=== PATIENT | female | born 1965 | race Caucasian/White ===

== ENCOUNTER 2022-12-31 13:01 | Outpatient (RCR) | payer MEDICARE, SELFPAY ==
--- NOTE | 2022-12-31 14:21 | PTOPEVAL1 ---
Assessment and note entered by Yariel Hall Evaluation Information Assessment Status Evaluation Diagnosis flank pain, right hip pain Onset 10/30/22 Subjective Information Pt. recalls worsening back and hip pain over the past couple months. She describes her pain in the area of the right buttock and back. She states that pain is most notable with getting out of a seated position and walking. She reports difficulty with laying flat. She denies any falls or abnormal weakness. She reports that she has difficulty with walking long distances. She report she gets relief of her pain with described bending forward. She reports that she has to go up and down steps to do her laundry and pain worsens with this activity. She states that her goal is to get rid of her back pain. Reported Pain Level Pain Score 6: Self Report Assessment PT Clinical Summary Pt. is a 57 year old female who enters the clinic with back and hip pain secondary to noted dextroscoliosis. she presents with impaired postural awareness, impaired gait, impaired trunk moblity, weakness and pain with ADL's on this date . Continued skilled PT is indicated in order to improve these areas to allow the pt. to be able to complete all IADL's with improved comfort. Plan of Care Interventions Electrical Stimulation,Hot Pack/Cold Pack,Manual Therapy,Neuro Re-education,Patient/Caregiver Educati,Therapeutic Activities,Therapeutic Exercise,Self-Care/Home Management PT Services Indicated Yes Treatment Frequency and 2x/week x 12 visits Duration These treatments will address the objective and functional deficits as defined above. The patient will be advanced safely and appropriately in order for the patient to progress towards his/her prior level of function. Additional exercises will be introduced and as well as a comprehensive home exercise program upon discharge, if needed, ?to ensure carryover of functional gains achieved in the clinic. This treatment plan has been reviewed and agreement upon by the patient.
== END 2023-01-14 15:17 | disposition home or self-care (01) ==
LOC: CHSPT 13:01
PROVIDERS: PCP Family Medicine; Visit Provider Family Medicine
DX: R10.9 Unspecified abdominal pain (principal); M41.80 Other forms of scoliosis, site unspecified
CPT/HCPCS: 97014; 97110; 97140; 97161; G0283

== ENCOUNTER 2023-11-25 14:21 | Emergency (ER) | payer MEDICARE, SELFPAY ==
[2023-11-25] VITALS (16 sets, daily range): BP systolic 106–139; BP diastolic 62–81; PULSE 64–84; RESP 12–25; TEMP 37.1; O2SAT 98–100
--- NOTE | 2023-11-25 14:31 | ECG_ITS ---
Measurements Intervals [place] Rate: 77 P: 67 MT: 157 QRS: 17 QRSD: 72 T: 53 QT: 381 QTc: 431 Interpretive Statements SINUS RHYTHM BASELINE WANDER- I, III, AVR, AVL, AVF NORMAL ECG NO PREVIOUS ECG AVAILABLE FOR COMPARISON Electronically Signed On 11-26-2023 7:23:52 MBA INTERN by Santiago Parker D.O.
[2023-11-25 15:26] LABS: Basophils Percent Auto 0.4 % (0.2-1.2); Eosinophils Absolute Auto 0.2 K/mm3 (0-0.3); Eosinophils Percent Auto 3.2 % (0-4.4); Hematocrit 29.6 % (37.0-47.0); Hemoglobin 9.5 g/dL (12.0-15.0); Immature Granulocyte Absolute 0.11 K/mm3 (0.00-0.031); Lymphocytes Absolute Auto 1.17 K/mm3 (0.9-3.2); Lymphocytes Percent Auto 21.1 % (18.3-44.2); Mean Corpuscular HGB Conc 32.1 g/dl (32-36); Mean Corpuscular Hemoglobin 29.7 pg (26-34); Mean Corpuscular Volume 92.5 fl (80-100); Mean Platelet Volume 9.4 fl (7.4-10.4); Monocytes Absolute Auto 0.4 K/mm3 (0.1-0.6); Monocytes Percent Auto 7.9 % (2.6-8.5); Neutrophils Absolute Auto 3.6 K/mm3 (1.3-6.7); Neutrophils Percent Auto 65.4 % (45.5-73.1); Platelet Count Result 456 k/mm3 (150-375); Red Cell Distribution Width 13.9 % (11.5-14.5); White Blood Count 5.5 K/mm3 (4.5-10.0)
[2023-11-25 15:27] LABS: Appearance Urine Clear (Clear); Bilirubin Urine Negative (Negative); Blood Urine Negative (Negative); Color Urine Yellow (Yellow); Glucose Urine UA Negative (Negative); Ketones Urine Negative (Negative); Leukocyte Esterase Ur Negative LEU/UL (Negative); Nitrate Urine Negative (Negative); Protein Urine Negative (Negative); Specific Grav Ur 1.006 (1.001-1.035); pH Urine 6.5 (5.0-9.0)
[2023-11-25 15:36] LABS: Add Urine Microscopic? NO
[2023-11-25 15:38] LABS: Alanine Aminotransferase 18 U/L (6-35); Albumin Level 3.1 g/dL (3.5-5.1); Alkaline Phosphatase 75 U/L (38-126); Anion Gap 6 mmol/L (8-16); Aspartate Amino Transferase 36 U/L (14-36); Bilirubin,Total 0.5 mg/dL (0.2-1.3); Blood Urea Nitrogen 11 mg/dL (7-17); Calcium 8.1 mg/dL (8.4-10.2); Carbon Dioxide 22 mmol/L (22-30); Chloride 102 mmol/L (98-107); Estimated CRCL calculation 62 ml/min; Estimated Glomerular Filt Rate > 60; Glucose 81 mg/dL (65-110); Potassium 3.3 mmol/L (3.4-5.0); Sodium 130 mmol/L (137-145)
--- NOTE | 2023-11-25 15:48 | ED.SEIZURE ---
HPI - Seizure General Chief Complaint: Seizure Stated Complaint: seizure Time Seen by Provider: 11/25/23 14:55 History of Present Illness HPI Narrative: Patient is a 58-year-old female with a history of seizure disorder presenting after a seizure. Patient is coming from a rehab facility. States that she had a seizure and everyone at the facility panicked and called 911. States that she has a history of seizures and is on numerous medications. She currently denies any complaints. She states that she feels well and she does not want to be here. Related Data Allergies Allergy/AdvReac Type Severity Reaction Status Date / Time NA Allergy Unknown Uncoded 03/09/09 12:07 Review of Systems Review of Systems: All systems reviewed & are unremarkable except as noted in HPI and below Exam Narrative: GENERAL: Well-appearing, in no acute distress, pleasant and cooperative HEAD: Normocephalic, atraumatic. EYES: PERRLA and EOMI. ENT: Grossly unremarkable NECK: Supple. CHEST: No respiratory distress. HEART: Regular rate and rhythm EXTREMITIES: Normal range of motion. SKIN: Warm, dry, no rash. NEURO: No focal deficits. Alert and oriented x3. PSYCH: Normal mood and affect. Course Vital Signs Vital signs: Vital Signs Temperature 98.7 F 11/25/23 14:19 Pulse Rate 84 11/25/23 14:19 Respiratory Rate 15 11/25/23 14:19 Blood Pressure 139/81 11/25/23 14:19 Pulse Oximetry 99 11/25/23 14:19 Oxygen Delivery Room Air 11/25/23 14:19 Temperature 98.7 F 11/25/23 14:19 Pulse Rate 74 11/25/23 17:19 Respiratory Rate 17 11/25/23 17:19 Blood Pressure 112/63 11/25/23 17:19 Pulse Oximetry 100 11/25/23 17:19 Oxygen Delivery Room Air 11/25/23 14:48 MDM - Seizure MDM Narrative Medical decision making narrative: 58-year-old female presenting after seizure. Vitals are stable. Exam is unremarkable. Neurologically intact. She denies any complaints right now. She is rather upset that she is here and that EMS was called. States that she takes multiple seizure medications and she is compliant. Blood work was obtained which shows mild hypokalemia and hyponatremia. No other significant abnormalities. Patient declined IV hydration but she was agreeable with an IV load of Keppra. She is asking to go which I think is reasonable. She states that she has an appointment with her neurologist coming up. Strict return precautions given. Discharged in stable condition. Differential Diagnosis Differential diagnosis: Likely focal seizure, generalized seizure and other ( Seizure disorder) Lab Data Attestation: I reviewed the patient's lab results. 11/25/23 15:19 11/25/23 15:19 Labs: Lab Results 11/25/23 11/25/23 Range/Units 15:19 15:20 WBC 5.5 (4.5-10.0) K/mm3 RBC 3.20 L (4.2-5.4) M/mm3 Hgb 9.5 L (12.0-15.0) g/dL Hct 29.6 L (37.0-47.0) % MCV 92.5 (80-100) fl MCH 29.7 (26-34) pg MCHC 32.1 (32-36) g/dl RDW 13.9 (11.5-14.5) % Plt Count 456 H (150-375) k/mm3 MPV 9.4 (7.4-10.4) fl Immature Gran % (Auto) 2.0 H (0-0.5) % Neut % (Auto) 65.4 (45.5-73.1) % Lymph % (Auto) 21.1 (18.3-44.2) % [place] % (Auto) 7.9 (2.6-8.5) % Eos % (Auto) 3.2 (0-4.4) % Baso % (Auto) 0.4 (0.2-1.2) % Lymph # (Auto) 1.17 (0.9-3.2) K/mm3 [place] # (Auto) 0.4 (0.1-0.6) K/mm3 Eos # (Auto) 0.2 (0-0.3) K/mm3 Baso # (Auto) 0.0 (0.0-0.1) K/mm3 Abs Immat Gran (auto) 0.11 H (0.00-0.031) K/mm3 Absolute Neuts (auto) 3.6 (1.3-6.7) K/mm3 Absolute Nucleated RBC 0.0 (0.0-0.012) K/mm3 Nucleated RBC % 0.0 (0.0-0.2) % Sodium 130 L (137-145) mmol/L Potassium 3.3 L (3.4-5.0) mmol/L Chloride 102 (98-107) mmol/L Carbon Dioxide 22 (22-30) mmol/L Anion Gap 6 L (8-16) mmol/L BUN 11 (7-17) mg/dL Creatinine 0.70 (0.7-1.0) mg/dL Estim Creat Clear Calc 62 ml/min Estimated GFR > 60 (59 - ) Gluco
--- NOTE | 2023-11-25 16:04 | PC.NURSE ---
pt requested no iv fluids. I educated pt of side effects, use, and how it could benefit them but they still would like to refuse. notified
[2023-11-25] MEDS: levETIRAcetam 1000MG/NACL100ML 1,000 MG/100 ML BAG 400 MG IVPB (16:13)
== END 2023-11-25 17:17 | disposition home or self-care (01) ==
PROVIDERS: Emergency Provider Emergency Medicine; PCP Family Medicine
DX: G40.909 Epilepsy, unspecified, not intractable, without status epilepticus (principal)
CPT/HCPCS: 36415; 80053; 81003; 85025; 93005; 96374; 99284; J1953

== ENCOUNTER 2023-12-03 19:44 | Emergency (ER) | payer MEDICARE, SELFPAY ==
[2023-12-03] VITALS (26 sets, daily range): BP systolic 81–113; BP diastolic 47–61; PULSE 70–92; RESP 11–22; TEMP 36.5–38.1; O2SAT 95–100
--- NOTE | ~2023-12-03 | CT_ITS ---
EXAMINATION: CT brain wo con DATE: 12/03/2023 20:43 INDICATION: weakness . TECHNIQUE: Computed tomography (CT) of the head was performed without intravenous contrast. The mA wa s adjusted according to patient size. Iterative reconstruction technique was employed. The dose-lengt h product was 605.33 mGy-cm. COMPARISON: None. FINDINGS: No acute intracranial hemorrhage or extra-axial fluid collection. No hydrocephalus, mass, or herniation. No acute ischemic infarct. Unremarkable dural venous sinus attenuation. No acute osseous abnormality. The aerated spaces are clear. Bilateral craniotomy defects. Left temporal encephalomalacia. Mild atrophy and chronic white matter c hange. Atherosclerotic intracranial calcification. Bilateral lens replacements. IMPRESSION: No acute intracranial process. Reviewed, dictated and finalized at location K. LIARY ENGINEER
--- NOTE | ~2023-12-03 | XR_ITS ---
EXAMINATION: XR chest 2V Exam Date/Time: 12/03/2023 20:00 MARINE EQUIPMENT ENGINEER HISTORY: weakness Comparison: 01/14/2017. RESULT: Lines, tubes, and devices: Cervical fusion hardware. Screw and plate fixation of the right clavicle. Lungs and pleura: Mild diffuse reticular opacities. Cardiomediastinal silhouette: Stable. Other: No acute osseous or upper abdominal finding. Severe lumbar scoliosis. IMPRESSION: Mild interstitial edema. Reviewed, dictated and finalized at location [facility]. NE EQUIPMENT ENGINEER IMPRESSION: Mild interstitial edema.
--- NOTE | ~2023-12-03 | CT_ITS ---
Clinical Indication: Fever, recent hip surgery CT Scan of the Chest, Abdomen, and Pelvis with Contrast: Technique: Contiguous sections were acquired throughout the chest, abdomen, and pelvis after intraven ous administration of 100 cc of Omnipaque 350. Dose reduction technique was used on this scan by jose horn automated exposure control and iterative reconstruction technique. The dose-length product (DL P) was 378.63 mGy-cm. Findings: There is no evidence of any significant mediastinal, hilar or axillary lymphadenopathy. The mediastin al soft tissues and vascular structures appear normal. There is no evidence of pleural or pericardial effusion. The lungs are clear. No pulmonary nodules or infiltrates are noted. The liver, spleen, pancreas, gallbladder, adrenals and kidneys are within normal limits. There are at herosclerotic calcifications of the aorta. No lymphadenopathy. No bowel obstruction or bowel wall thickening. There is no evidence to suggest acute appendicitis. There is streak artifact in the pelvis from left hip arthroplasty. Urinary bladder grossly unremarkab le. No pelvic mass seen. Trace pelvic ascites. There are mild compression deformities of T8 and L1, l ikely chronic. There is a probable peripheral enhancing fluid collection anterior to the left hip in the very proxim al rectus femoris muscle belly, measuring approximately 5.4 cm in maximum diameter (coronal image 37) . Impression: Somewhat lobulated/irregular fluid collection in the very proximal left rectus femoris muscle belly, anterior to the left hip. This could reflect postoperative tract/seroma versus abscess. Correlate cli nically. Trace pelvic ascites. Reviewed, dictated and finalized at [facility]. INE OPERATOR Impression: Somewhat lobulated/irregular fluid collection in the very proximal left rectus femoris muscle belly, anterior to the left hip. This could reflect postoperativ e tract/seroma versus abscess. Correlate clinically. Trace pelvic ascites.
--- NOTE | 2023-12-03 19:54 | ECG_ITS ---
Measurements Intervals [place] Rate: 85 P: 43 NM: 169 QRS: 43 QRSD: 76 T: 48 QT: 341 QTc: 406 Interpretive Statements SINUS RHYTHM RSR' IN V1 OR V2, PROBABLY NORMAL VARIANT BORDERLINE T WAVE ABNORMALITY- ANTERIOR LEADS BASELINE ARTIFACT- I, III, AVR, AVL, AVF, V6 BORDERLINE ECG COMPARED TO ECG 11/25/2023 14:33:25 NO SIGNIFICANT CHANGES Electronically Signed On 12-04-2023 5:20:09 [employer]VER [employer] by Santiago Parker D.O.
[2023-12-03 20:13] LABS: Basophils Percent Auto 0.3 % (0.2-1.2); Eosinophils Absolute Auto 0.1 K/mm3 (0-0.3); Eosinophils Percent Auto 4.7 % (0-4.4); Hematocrit 25.7 % (37.0-47.0); Hemoglobin 7.7 g/dL (12.0-15.0); Immature Granulocyte Absolute 0.01 K/mm3 (0.00-0.031); Immature Granulocyte Percent A 0.3 % (0-0.5); Lymphocytes Absolute Auto 0.45 K/mm3 (0.9-3.2); Lymphocytes Percent Auto 15.3 % (18.3-44.2); Mean Corpuscular Hemoglobin 28.9 pg (26-34); Mean Corpuscular Volume 96.6 fl (80-100); Mean Platelet Volume 9.2 fl (7.4-10.4); Monocytes Absolute Auto 0.3 K/mm3 (0.1-0.6); Monocytes Percent Auto 9.5 % (2.6-8.5); Neutrophils Absolute Auto 2.1 K/mm3 (1.3-6.7); Neutrophils Percent Auto 69.9 % (45.5-73.1); Platelet Count Result 264 k/mm3 (150-375); Red Blood Count 2.66 M/mm3 (4.2-5.4); Red Cell Distribution Width 13.9 % (11.5-14.5)
[2023-12-03 20:30] LABS: Alanine Aminotransferase 14 U/L (6-35); Albumin Level 3.1 g/dL (3.5-5.1); Alkaline Phosphatase 101 U/L (38-126); Anion Gap 7 mmol/L (8-16); Aspartate Amino Transferase 38 U/L (14-36); Bilirubin,Total 0.6 mg/dL (0.2-1.3); Blood Urea Nitrogen 10 mg/dL (7-17); Calcium 7.8 mg/dL (8.4-10.2); Carbon Dioxide 19 mmol/L (22-30); Chloride 102 mmol/L (98-107); Estimated CRCL calculation 58 ml/min; Estimated Glomerular Filt Rate > 60; Glucose 84 mg/dL (65-110); Potassium 4.2 mmol/L (3.4-5.0); Sodium 128 mmol/L (137-145)
[2023-12-03] MEDS: SODIUM CHLORIDE 0.9% IV 1,000 ML 999 ML IV CONT (20:47)
[2023-12-03] MEDS: ACETAMINOPHEN 500 MG TABLET 1000 MG PO (20:47)
[2023-12-03 21:29] LABS: Magnesium 1.8 mg/dL (1.6-2.3)
[2023-12-03 21:35] LABS: INR 1.1; Prothrombin Time 15.3 Seconds (11.1-14.7)
[2023-12-03 21:36] LABS: Partial Thromboplastin Time 28.7 SECONDS (22.3-36.8)
[2023-12-03 21:40] LABS: Troponin I < 0.012 ng/mL (0.000-0.034)
[2023-12-03 21:45] LABS: Procalcitonin 0.1 ng/mL
[2023-12-03 21:48] LABS: Appearance Urine Clear (Clear); Bilirubin Urine Negative (Negative); Blood Urine Negative (Negative); Color Urine Yellow (Yellow); Glucose Urine UA Negative (Negative); Ketones Urine 1+ mg/dL (Negative); Leukocyte Esterase Ur Negative LEU/UL (Negative); Nitrate Urine Negative (Negative); Protein Urine Negative (Negative); Specific Grav Ur 1.021 (1.001-1.035)
[2023-12-03 21:53] LABS: Influenza A QL RT-PCR Negative (Negative); Influenza B QL RT-PCR Negative (Negative); RSV RNA, RT-PCR Negative (Negative); SARS-CoV-2 RNA PCR Negative (Negative)
[2023-12-03 21:54] LABS: Add Urine Microscopic? NO
--- NOTE | 2023-12-03 22:36 | PC.NURSE ---
daughter requesting patient to have nighttime seizure medications as she feels like she did not get them prior to transfer to facility. called [facility] and confirmed with Asha patient's medications and last doses. patient did not receive meds. provider aware and new orders received
[2023-12-03] MEDS: levETIRAcetam 500 MG TABLET 3000 MG PO (23:06)
[2023-12-03] MEDS: LACOSAMIDE (*CRX) 200 MG TABLET PO (23:08)
[2023-12-04] VITALS (96 sets, daily range): BP systolic 80–104; BP diastolic 47–73; PULSE 61–98; RESP 10–26; TEMP 37–37.1; O2SAT 95–100
[2023-12-04] MEDS: SODIUM CHLORIDE 0.9% IV 1,000 ML 999 ML IV CONT (00:11)
--- NOTE | 2023-12-04 01:52 | ED.GENADULT ---
HPI - General Adult General Chief complaint: Weakness Stated complaint: WEAKNESS S/P FALL Time Seen by Provider: 12/03/23 19:56 History of Present Illness HPI narrative: Patient is a 58-year-old female who presents emergency department with chief complaint of falls and generalized weakness. Patient has a baseline alert and oriented x2 and had a hip replacement back in the end of October the patient has been undergoing rehab and is getting close to discharge today they noticed that she was more confused and actually had a fever at 38.1 Related Data Allergies Allergy/AdvReac Type Severity Reaction Status Date / Time NA Allergy Unknown Uncoded 03/09/09 12:07 Course Vital Signs Vital signs: Vital Signs Temperature 38.1 C H 12/03/23 19:44 Pulse Rate 90 12/03/23 19:44 Respiratory Rate 19 12/03/23 19:44 Blood Pressure 112/61 12/03/23 19:44 Pulse Oximetry 100 12/03/23 19:44 Oxygen Delivery Room Air 12/03/23 19:44 Temperature 37.1 C 12/04/23 04:10 Pulse Rate 62 12/04/23 04:10 Respiratory Rate 12 12/04/23 04:10 Blood Pressure 84/56 L 12/04/23 04:10 Pulse Oximetry 99 12/04/23 04:10 Oxygen Delivery Room Air 12/03/23 19:44 Medical Decision Making [facility] Narrative Medical decision making narrative: Differential diagnosis includes sepsis, UTI, postoperative infection, seizure disorder, pneumonia Chest x-ray showed no focal infiltrate Urinalysis showed no evidence UTI Patient was negative for COVID flu and RSV Helical imaging was obtained through the chest abdomen pelvis which did show fluid collection at the area of her hip replacement. Given the patient is febrile a risk concern for possible infection blood cultures were obtained patient received cefepime and vancomycin empirically due to the patient's surgery being in [place] at [facility] the case was discussed with the transfer center at [facility] in the patient is currently on the wait list Vital Signs Vital Signs: Vital Signs Temperature 38.1 C H 12/03/23 19:44 Pulse Rate 90 12/03/23 19:44 Respiratory Rate 19 12/03/23 19:44 Blood Pressure 112/61 12/03/23 19:44 Pulse Oximetry 100 12/03/23 19:44 Oxygen Delivery Room Air 12/03/23 19:44 Temperature 37.1 C 12/04/23 04:10 Pulse Rate 62 12/04/23 04:10 Respiratory Rate 12 12/04/23 04:10 Blood Pressure 84/56 L 12/04/23 04:10 Pulse Oximetry 99 12/04/23 04:10 Oxygen Delivery Room Air 12/03/23 19:44 Lab Data 12/03/23 20:04 12/03/23 20:04 Labs: Lab Results 12/03/23 12/03/23 12/04/23 Range/Units 20:04 21:06 02:11 WBC 3.0 L (4.5-10.0) K/mm3 RBC 2.66 L (4.2-5.4) M/mm3 Hgb 7.7 L (12.0-15.0) g/dL Hct 25.7 L (37.0-47.0) % MCV 96.6 (80-100) fl MCH 28.9 (26-34) pg MCHC 30.0 L (32-36) g/dl RDW 13.9 (11.5-14.5) % Plt Count 264 (150-375) k/mm3 MPV 9.2 (7.4-10.4) fl Immature Gran % (Auto) 0.3 (0-0.5) % Neut % (Auto) 69.9 (45.5-73.1) % Lymph % (Auto) 15.3 L (18.3-44.2) % [place] % (Auto) 9.5 H (2.6-8.5) % Eos % (Auto) 4.7 H (0-4.4) % Baso % (Auto) 0.3 (0.2-1.2) % Lymph # (Auto) 0.45 L (0.9-3.2) K/mm3 [place] # (Auto) 0.3 (0.1-0.6) K/mm3 Eos # (Auto) 0.1 (0-0.3) K/mm3 Baso # (Auto) 0.0 (0.0-0.1) K/mm3 Abs Immat Gran (auto) 0.01 (0.00-0.031) K/mm3 Absolute Neuts (auto) 2.1 (1.3-6.7) K/mm3 Absolute Nucleated RBC 0.0 (0.0-0.012) K/mm3 Nucleated RBC % 0.0 (0.0-0.2) % PT 15.3 H (11.1-14.7) Seconds INR 1.1 APTT 28.7 (22.3-36.8) SECONDS Sodium 128 L (137-145) mmol/L Potassium 4.2 (3.4-5.0) mmol/L Chloride 102 (98-107) mmol/L Carbon Dioxide 19 L (22-30) mmol/L Anion Gap 7 L (8-16) mmol/L BUN 10 (7-17) mg/dL Creatinine 0.70 (0.7-1.0) mg/dL Estim Creat Clear Calc 58 ml/min Estimated GFR > 60 (59 - ) Glucose 84 (65-110) mg/dL Lactic Aci
[2023-12-04] MEDS: CEFEPIME 2 GM/NS 50 ML 2 GM/50 ML BAG IVPB ×2 (02:12→10:43)
[2023-12-04 02:37] LABS: Lactic Acid Reflex < 0.5 mmol/L (0.7-2.0)
[2023-12-04] MEDS: VANCOMYCIN 1,250 MG/NS 250 ML 1,250 MG/250 ML BAG 166.67 MG IVPB (02:49)
[2023-12-04] MEDS: SODIUM CHLORIDE 0.9% IV 1,000 ML 75 ML IV CONT (03:00)
--- NOTE | 2023-12-04 06:49 | PC.NURSE ---
spoke w/ [facility]. pt. on waitlist.
--- NOTE | 2023-12-04 09:14 | PC.NURSE ---
0830 Bed status check-still waiting-call if any changes in condition.
[2023-12-04] MEDS: levETIRAcetam 500 MG TABLET 2000 MG PO (10:38)
[2023-12-04] MEDS: LACOSAMIDE (*CRX) 200 MG TABLET PO (10:38)
[2023-12-04] MEDS: TOPIRAMATE 100 MG TABLET 200 MG PO (10:39)
--- NOTE | 2023-12-04 11:59 | PC.NURSE ---
Food tray ordered
--- NOTE | 2023-12-04 17:06 | PC.NURSE ---
food tray ordered
--- NOTE | 2023-12-04 17:18 | PC.NURSE ---
Nurse from [place] called, reviewed VS and pt condition with nurse. Pt to page physician and call back with room assignment.
--- NOTE | 2023-12-04 18:44 | PC.NURSE ---
Attempted to call report to [facility] x4
== END 2023-12-04 19:13 ==
PROVIDERS: Emergency Provider Emergency Medicine; PCP Family Medicine
DX: R50.9 Fever, unspecified (principal); Z96.642 Presence of left artificial hip joint; Z20.822 Contact with and (suspected) exposure to COVID-19; R94.31 Abnormal electrocardiogram [ECG] [EKG]; J81.1 Chronic pulmonary edema
CPT/HCPCS: 36415; 70450; 71046; 71260; 74177; 80053; 81003; 83605; 83735; 84145; 84484; 85025; 85610; 85730; 87040; 87637; 93005; 96361; 96365; 96367; 99284; A9270; J0692; J3370; J7030; Q9967

== ENCOUNTER 2024-01-10 14:03 | Outpatient (RCR) | payer MEDICARE, SELFPAY ==
--- NOTE | 2024-01-10 15:08 | OPREHPOC ---
Outpatient Therapy Plan of Care This is a Multidisciplinary Plan of Care that may contain components documented by all disciplines (PT, OT, and ST.) PT Problem 1 PT Problem #1 Knowledge Deficit PT Goal 1 Goal Patient to demonstrate independence with HEP Target Visit 5 PT Problem 2 PT Problem #2 Pain PT Goal 1 Goal 1. Patient to report highest pain at 2/10 2. Patient to report ability to navigate through her house with no increase in pain Target Visit 10 PT Problem 3 PT Problem #3 Impaired Range of Motion PT Goal 1 Goal Patient to demonstrate 110 deg of L hip flexion to return to dressing tasks at PLOF Target Visit 10 PT Problem 4 PT Problem #4 Impaired Strength PT Goal 1 Goal 1. Patient to demonstrate 4+/5 B LE strength in order to return to getting into and out of car at PLOF Target Visit 10 PT Problem 5 PT Problem #5 Impaired Functional Mobil PT Goal 1 Goal 1. Patient to demonstrate 30% improvement of LEFS 2. Patient to ambulate 600' during 6 min walk test with no AD 3. Patient to demonstrate equal step length and appropriate heel strike at IC Target Visit 10
--- NOTE | 2024-01-10 15:09 | PTOPEVAL1 ---
Assessment and note entered by Kelsey Pederson DPT Evaluation Information Assessment Status Evaluation Diagnosis L hip pain Onset 01/03/24 Subjective Information Patient reports around [place] time she had a L hip replacement. She reports she did not use a AD prior to surgery but is now using a cane outside of the house. She reports she sitting too long causes some L hip pain. She reports she has difficulty with getting into and out of the car and is sleeping in a recliner. She reports she is independent with house hold tasks. she returns to [facility] in mid January. She reports anterior hip approach Reported Pain Level Pain Score 0: Self Report Assessment PT Clinical Summary Ms. Otero is a 58 year old woman who presents to PT with L hip pain and weakness s/p L CEASAR. She demonstrates decreased L hip strength, L hip pain, and impaired gait mechanics limiting her ability to complete house hold tasks and ambulate in the community. She would benefit from skilled PT to address impairments and return to [facility]. Plan of Care Interventions Gait Training,Hot Pack/Cold Pack,Manual Therapy, Neuro Re-education,Patient/Caregiver Educati, Therapeutic Activities,Therapeutic Exercise PT Services Indicated Yes Treatment Frequency and 2x weekly for 10 visits Duration These treatments will address the objective and functional deficits as defined above. The patient will be advanced safely and appropriately in order for the patient to progress towards his/her prior level of function. Additional exercises will be introduced and as well as a comprehensive home exercise program upon discharge, if needed, ?to ensure carryover of functional gains achieved in the clinic. This treatment plan has been reviewed and agreement upon by the patient.
--- NOTE | 2024-02-18 18:10 | OPREHPOC ---
Outpatient Therapy Plan of Care This is a Multidisciplinary Plan of Care that may contain components documented by all disciplines (PT, OT, and ST.) PT Problem 1 PT Problem #1 Knowledge Deficit PT Goal 1 Goal Patient to demonstrate independence with HEP Target Visit 5 Progress Met PT Problem 2 PT Problem #2 Pain PT Goal 1 Goal 1. Patient to report highest pain at 2/10 2. Patient to report ability to navigate through her house with no increase in pain Target Visit 10 Progress Met PT Problem 3 PT Problem #3 Impaired Range of Motion PT Goal 1 Goal Patient to demonstrate 110 deg of L hip flexion to return to dressing tasks at PLOF Target Visit 10 Progress Met PT Problem 4 PT Problem #4 Impaired Strength PT Goal 1 Goal 1. Patient to demonstrate 4+/5 B LE strength in order to return to getting into and out of car at PLOF Target Visit 10 Progress Met PT Problem 5 PT Problem #5 Impaired Functional Mobil PT Goal 1 Goal 1. Patient to demonstrate 30% improvement of LEFS 2. Patient to ambulate 600' during 6 min walk test with no AD 3. Patient to demonstrate equal step length and appropriate heel strike at IC Target Visit 10 Progress Met
--- NOTE | 2024-02-18 18:11 | PTOPDC ---
Assessment and note entered by JT File, PT Evaluation Information Assessment Status Discharge Diagnosis L hip pain Onset 01/03/24 Subjective Information patient reports she feels Good today. she reports she has no pain in the L hip. she reports she is doing all of her prior activities and back to driving now. she reports she is ready to DC skilled PT. Reported Pain Level Pain Score 0: Self Report Assessment PT Clinical Summary mrs. rasheed presents to skilled PT today for her 10th skilled PT visit. she has met all goals for skilled PT today. she is independent and compliant with her HEP, and now back to driving. she will be DC'd from skilled PT today and will continue with her HEP independent at home. Plan of Care PT Services Indicated Yes
== END 2024-02-18 20:00 | disposition home or self-care (01) ==
LOC: CHSPT 14:03
PROVIDERS: Visit Provider Orthopaedic Surgery
DX: Z47.1 Aftercare following joint replacement surgery (principal); Z96.642 Presence of left artificial hip joint
CPT/HCPCS: 97110; 97112; 97161; 97530